=== PATIENT | female | born 1975 | race Hispanic/Latino ===

== ENCOUNTER 2025-06-29 17:57 | Emergency (ER) | payer SELFPAY ==
--- OUTSIDE RECORDS SUMMARY | 2025-06-29 18:01 | XMS REPORT | Continuity of Care Document ---
Author Name Unknown Address [address] [facility] [address] [place] [address] Organization [facility] Address [address] [facility]. [address] [place] [address] Care Team Providers Care Dough Sheeter Name Role Phone Doctor Unassigned, [facility] Unavailable Rickey Harris Attending Clinician MADALYN Attending Clinician Unavailable Gume Joyner MD Attending Clinician [phone] Joce Zamarripa MD Attending Clinician [phone] MADALYN Admitting Clinician Unavailable Problems Condition Name Condition Details Condition Category Status Onset Date Resolution Date Last Treatment Date Treating Clinician Comments Source History of depression History of depression Disease Active 11-11 00:00: 00 [facility] History of tubal ligation History of tubal ligation Disease Active 11-11 00:00: 00 [facility] Obesity Obesity Disease Active 02-10 00:00: 00 Overview: ICD10 Diagnosis Term Top Executive Utility [facility] Depression Depression Disease Active 02-10 00:00: 00 [facility] Pain pelvic Pain pelvic Disease Resolve d 06-17 00:00: 00 2015-11-11 00:00:00 2022-04-07 00:32:19 [facility] Internal hemorrhoid s Internal hemorrhoid s Disease Resolve d 2014-0 6-24 00:00: 00 2015-11-11 00:00:00 2022-04-07 00:30:53 [facility] Condyloma acuminatum Condyloma acuminatum Disease Resolve d 2012-1 2-13 00:00: 00 2015-11-11 00:00:00 2015-11-11 07:31:35 [facility] Dysmenorrh ea Dysmenorrh ea Disease Resolve d 02-10 00:00: 00 2015-11-11 00:00:00 2015-11-11 07:31:17 [facility] Menorrhagi a Menorrhagi a Disease Resolve d 02-10 00:00: 00 2015-11-11 00:00:00 2015-11-11 07:31:22 [facility] Tubal ligation evaluation Tubal ligation evaluation Disease Resolve d 02-10 00:00: 00 2015-11-11 00:00:00 2015-11-11 07:50:24 [facility] Allergies, Adverse Reactions, Alerts Allergy Name Allergy Type Status Severity Reaction(s) Onset Date Inactive Date Treating Clinician Comments Source NO KNOWN ALLERGIE S Drug Class Active [facility] Social History Social Habit Start Date Stop Date Quantity Comments Source [facility] function 2022-04-02 00:00:00 2022-04-02 00:00:00 [facility] Exposure to SARS-CoV-2 (event) 2020-06-07 00:00:00 2020-07-07 16:32:00 Not sure [facility] Tobacco use and exposure 2015-11-11 00:00:00 2015-11-11 00:00:00 Never used [facility] Alcohol intake 2015-11-11 00:00:00 2015-11-11 00:00:00 Current non-drinker of alcohol (finding) [facility] Sex assigned at 1975 00:00:00 1975 00:00:00 [facility] Smoking Status Start Date Stop Date Source Tobacco smoking consumption unknown [facility] Never smoker [facility] Medications Ordered Medication Name Filled Medication Name Start Date Stop Date Current Medication? Ordering Clinician Indication Dosage Frequency Signature (SIG) Comments Components Source NaCl 0.9% (NS) bolus infusion 1,000 mL 2019-09 00:45: 00 07-08 01:23 :00 No 1000mL at 999 mL/hr, 1,000 mL, IV Infusion, ONCE, 1 dose, Fri07/07/20 at 1945, STAT [facility] ondansetron (ZOFRAN (PF)) injection 4 mg 2019-09 00:45: 00 07-07 23:50 :00 No 4mg 4 mg, Slow IV Push, ONCE, 1 dose, Fri07/07/20 at 1945, [facility] meclizine (TRAVEL-EAS E (MECLIZINE) ) tablet 25 mg 2019-09 00:45: 00 07-07 23:50 :00 No 25mg 25 mg, Oral, ONCE, 1 dose, Fri07/07/20 at 1945, [facility] meclizine 25 mg tablet 2019-09 00:00: 00 Yes [id number] 25mg Take 1 tablet by mouth every 6 (six) hours. [facility] ondansetron (ZOFRAN) 4 mg tablet 2019-09 00:00: 00 Yes [id number] 4mg Take 1 tablet by mouth every 8 (eight) hours as needed for Nausea and Vomiting (N/V). [facility] Nitrofurant oin&Nit. Macrocryst (MACROBID) 100 mg capsule 2019-09 00:00: 00 Yes [id number] 100mg Take 1 capsule by mouth 2 (two) times daily. [facility] pantoprazol e (PROTONIX) 40 mg EC tablet 10-28 00:00: 00 Yes 40mg Take 1 tablet by mouth daily. [facility] traMADOL (ULTRAM) 50 mg tablet 10-28 00:00: 00 Yes 50mg Take 1 tablet by mouth every 6 (six) hours as needed for Pain (scale 7-10). [facility] ondansetron (ZOFRAN, HYDROCHLORI DE,) 4 mg tablet 10-28 00:00: 00 Yes 4mg Take 1 tablet by mouth every 8 (eight) hours as needed for Nausea and Vomiting (N/V). [facility] DIPHENHYDRA MINE HCL (BENADRYL ALLERGY ORAL) 11-11 13:28: 49 Yes Take by mouth. [facility] Immunizations Ordered Immunization Name Filled Immunization Name Date Status Comments Source Td 2008-02-11 00:00:00 Completed [facility] TD, NOS 2008-02-11 00:00:00 Completed Vital Signs Vital Name Observation Time Observation Value Comments S vladimir Systolic blood pressure 2020-07-08 01:00:00 122 mm[Hg] [facility] Diastolic blood pressure 2020-07-08 01:00:00 64 mm[Hg] [facility] Heart rate 2020-07-08 01:00:00 60 /min [facility] Respiratory rate 2020-07-08 01:00:00 18 /min [facility] Oxygen saturation in Arterial blood by Pulse oximetry 2020-07-08 01:00:00 100 /min [facility] Body temperature 2020-07-07 21:36:00 37.28 Ruth [facility] Body weight 2020-07-07 21:36:00 90.719 kg [facility] BMI 2020-07-07 21:36:00 30.41 kg/m2 [facility] Procedures Procedure Date / Time Performed Performing Clinician Source CT ANGIOGRAM HEAD 2020-07-07 23:14:47 Gume Joyner [facility] CT ANGIOGRAM NECK 2020-07-07 23:14:47 Gume Joyner [facility] CT HEAD WO CONTRAST 2020-07-07 22:43:41 Toni Joyner [facility] URINALYSIS 2020-07-07 22:00:00 Gume Joyner [facility] ADC / LCC - DRUG SCREEN TRIAGE 2020-07-07 22:00:00 Gume Joyner [facility] THYROID STIMULATING HORMONE 2020-07-07 21:56:00 Gume Joyner [facility] HEPATIC FUNCTION PANEL (24030) (ALB,T.PRO,BILI T,BU/BC,ALT,AST,ALK PHOS) 2020-07-07 21:56:00 Gume Joyner [facility] BASIC METABOLIC PANEL (NA, K, CL, CO2, GLUCOSE, BUN, CREATININE, CA) 2020-07-07 21:56:00 Gume Joyner [facility] CBC WITH DIFF 2020-07-07 21:56:00 Gume Joyner [facility] NOTICE OF PRIVACY PRACTICES 2020-07-07 21:25:44 Doctor Unassigned, [place] [facility] DIGITAL DIAGNOSTIC MAMMOGRAM, UNILATERAL 2012-04-13 19:33:00 Rickey Mcadams [facility] MAMMO [facility] COMPARISON 2011-11-08 20:41:00 Dolores Mcadams se [facility] Encounters Start Date/Time End Date/Time Encounter Type Admission Type Attending [facility] Care Facility Care Department Encounter ID Source 2011-11-08 00:00:00 2024-11-06 05:37:30 Orders Only Rickey Mcadams [facility] CHANGE MANAGEMENT COORDINATOR [facility] & CHILD [facility] [id number] [facility] 2012-04-13 00:00:00 2024-11-06 05:18:38 Orders Only Rickey Mcadams [facility] CHANGE MANAGEMENT COORDINATOR [facility] & CHILD [facility] [id number] [facility] 2020-07-07 16:37:00 2020-07-07 20:25:00 Emergency Gume Joyner [place] [facility] [id number] [facility] 2020-07-07 16:26:00 2020-07-07 16:26:00 Emergency X [facility] ERT [id number] [facility] Results Test Description Test Time Test Comments Results Resul t Comments Source CT ANGIOGRAM HEAD 2020-06-22 01:18:00 No high-grade stenosis or aneurysm is present in the intracranial orcervical vessels. 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 Axial images werereconstructed at 0.625 mm slice thickness. Coronal and sagittal MIPs wereprovided. ? FINDINGS: CTA NECK: Aortic arch and arch vessel origins: The left common carotid artery andinnominate artery. Common origin from the arch. The ostia of the greatvessels is free of stenosis. Innominate and subclavian arteries: Patent and unremarkable. Common carotids: Patent and unremarkable. Bifurcation and cervical carotid arteries: Patent and unremarkable. Vertebral arteries: The vertebral arteries originate from the subclavianartery and patent. The right vertebral artery is dominant. Cervical soft tissues: Unremarkable Lung apices: Clear Cervical spine: Straightening of cervical lordosis. A 0.5 cm scleroticfocus about T1 vertebral body may represent a bone island. The right maxillary sinus is partially opacified and small in size incomparison to the left, likely developmental. CTA HEAD: The left PICA origin is visualized. Right AICA-PICA variant. The basilarartery is normal in caliber. The superior cerebellar arteries areunremarkable. The posterior cerebral arteries are unremarkable. Noappreciable posterior communicating arteries are noted. The distal cervical, petrous, cavernous and supraclinoid internal carotidarteries are unremarkable. The anterior and middle cerebral arteries areunremarkable. An anterior communicating artery is visualized. [facility], Radiant Results Inft User - 07/07/2020 8:19 PM CDTCT ANGIOGRAM HEADCT ANGIOGRAM NECKHISTORY: Dissection of vertebral artery COMPARISON: NoneTECHNIQUE: CT angiography of the neck and head was performed after theintravenous demonstration of Omnipaque contrast. Axial images werereconstructed at 0.625 mm slice thickness. Coronal and sagittal MIPs wereprovided. FINDINGS:CTA NECK:Aortic arch and arch vessel origins: The left common carotid artery andinnominate artery. Common origin from the arch. The ostia of the greatvessels is free of stenosis.Innominate and subclavian arteries: Patent and unremarkable.Common carotids: Patent and unremarkable.Bifurcat ion and cervical carotid arteries: Patent and unremarkable.Vertebra l arteries: The vertebral arteries originate from the subclavianartery and patent. The right vertebral artery is dominant.Cervical soft tissues: UnremarkableLung apices: ClearCervical spine: Straightening of cervical lordosis. A 0.5 cm scleroticfocus about T1 vertebral body may represent a bone island.The right maxillary sinus is partially opacified and small in size incomparison to the left, likely developmental. CTA HEAD: The left PICA origin is visualized. Right AICA-PICA variant. The basilarartery is normal in caliber. The superior cerebellar arteries areunremarkable. The posterior cerebral arteries are unremarkable. Noappreciable posterior communicating arteries are noted.The distal cervical, petrous, cavernous and supraclinoid internal carotidarteries are unremarkable. The anterior and middle cerebral arteries areunremarkable. An anterior communicating artery is visualized.IMPRESSION No high-grade stenosis or aneurysm is present in the intracranial orcervical vessels.Preliminary Report Dictated by Resident: Ferny Rivas MD., have reviewed this study and agree with theabove report. [facility] CT ANGIOGRAM NECK 2019-10-1 7 01:18:00 No high-grade stenosis or aneurysm is present in the intracranial orcervical vessels. 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 Axial images werereconstructed at 0.625 mm slice thickness. Coronal and sagittal MIPs wereprovided. ? FINDINGS: CTA NECK: Aortic arch and arch vessel origins: The left common carotid artery andinnominate artery. Common origin from the arch. The ostia of the greatvessels is free of stenosis. Innominate and subclavian arteries: Patent and unremarkable. Common carotids: Patent and unremarkable. Bifurcation and cervical carotid arteries: Patent and unremarkable. Vertebral arteries: The vertebral arteries originate from the subclavianartery and patent. The right vertebral artery is dominant. Cervical soft tissues: Unremarkable Lung apices: Clear Cervical spine: Straightening of cervical lordosis. A 0.5 cm scleroticfocus about T1 vertebral body may represent a bone island. The right maxillary sinus is partially opacified and small in size incomparison to the left, likely developmental. CTA HEAD: The left PICA origin is visualized. Right AICA-PICA variant. The basilarartery is normal in caliber. The superior cerebellar arteries areunremarkable. The posterior cerebral arteries are unremarkable. Noappreciable posterior communicating arteries are noted. The distal cervical, petrous, cavernous and supraclinoid internal carotidarteries are unremarkable. The anterior and middle cerebral arteries areunremarkable. An anterior communicating artery is visualized. [facility], Radiant Results Inft User - 07/07/2020 8:19 PM CDTCT ANGIOGRAM HEADCT ANGIOGRAM NECKHISTORY: Dissection of vertebral artery COMPARISON: NoneTECHNIQUE: CT angiography of the neck and head was performed after theintravenous demonstration of Omnipaque contrast. Axial images werereconstructed at 0.625 mm slice thickness. Coronal and sagittal MIPs wereprovided. FINDINGS:CTA NECK:Aortic arch and arch vessel origins: The left common carotid artery andinnominate artery. Common origin from the arch. The ostia of the greatvessels is free of stenosis.Innominate and subclavian arteries: Patent and unremarkable.Common carotids: Patent and unremarkable.Bifurcat ion and cervical carotid arteries: Patent and unremarkable.Vertebra l arteries: The vertebral arteries originate from the subclavianartery and patent. The right vertebral artery is dominant.Cervical soft tissues: UnremarkableLung apices: ClearCervical spine: Straightening of cervical lordosis. A 0.5 cm scleroticfocus about T1 vertebral body may represent a bone island.The right maxillary sinus is partially opacified and small in size incomparison to the left, likely developmental. CTA HEAD: The left PICA origin is visualized. Right AICA-PICA variant. The basilarartery is normal in caliber. The superior cerebellar arteries areunremarkable. The posterior cerebral arteries are unremarkable. Noappreciable posterior communicating arteries are noted.The distal cervical, petrous, cavernous and supraclinoid internal carotidarteries are unremarkable. The anterior and middle cerebral arteries areunremarkable. An anterior communicating artery is visualized.IMPRESSION No high-grade stenosis or aneurysm is present in the intracranial orcervical vessels.Preliminary Report Dictated by Resident: Robert Jay, Ferny Maloney MD., have reviewed this study and agree with theabove report. [facility] [id number] 22:46:44Normal CT headCT HEAD WO CONTRAST HISTORY: Female 44 years Dizziness, persistent/recurrent, cardiacorvascular cause suspected COMPARISON: CT head dated 10/28/2017 TECHNIQUE: Routine CT head without contrast FINDINGS: The ventricles and cerebral sulci are normal in caliber and configuration.No hydroce phalus, midline shift or pathological extra-axial fluidcollection is present. The basal cisterns are unremarkable. No acute intracranial hemorrhage or mass effect is present. The du-whitematter differentiation is preserved. No parenchymal attenuation abnormalityis present. The calvarium and skullbase are unremarkable. The mastoid air cells andvisualized paranasal air sinuses are clear. [facility], Radiant Results Inft User - 07/07/2020 5:47 PM CDTCT HEAD WO CONTRASTHISTORY: Female 44 years Dizziness, persistent/recurrent, cardiac orvascular cause suspected COMPARISON: CT head dated 10/28/2017TECHNIQUE: Routine CT head without contrastFINDINGS:The ventricles and cerebral sulci are normal in caliber and configuration.No hydrocephalus, midline shift or pathological extra-axial fluidcollection is present. The basal cisterns are unremarkable.No acute intracranial hemorrhage or mass effect is present. The du-whitematter differentiation is preserved. No parenchymal attenuation abnormalityis pres ent.The calvarium and skull base are unremarkable. The mastoid air cells andvisualized paranasal air sinuses are clear.IMPRESSIONNormal CT headUnHendrick [facility] BrownwoodUrinalysis2020-10-16 22:28:00* Test Item Value Reference Range Interpretation Comme nts APPEARANCE (test code = 2564302943) Hazy Clear A COLOR (test code = 5936054938) Yellow Yellow PH (test code = 4425697242) 4.8-8.0 SP GRAVITY (test code = 9008182397) 1.003-1.030 GLU U QUAL (test code = 3289620177) Normal Normal BLOOD (test code = 8561386858) Negative Negative KETONES (test code = 6772820781) Negative Negative PROTEIN (test code = 2887-8) Negative Negative UROBILIN (test code = 6779228248) Normal Normal BILIRUBIN (test code = 7744270971) Negative Negative NITRITE (test code = 4669672449) Negative Negative LEUK JOLIE (test code = 1173804467) 75/uL Negative A RBC/HPF (test code = 8401662706) See_Comment [Automated messa ge] The system which generated this result transmitted reference range: 0 - 3 HPF. The reference range was not used to interpret this result as normal/abnormal. WBC/HPF (test code = 4898161443) See_Comment H [Automated messa ge] The system which generated this result transmitted reference range: 0 - 5 HPF. The reference range was not used to interpret this result as normal/abnormal. BACTERIA (test code = 7481742916) Few Negative A MUCOUS (test code = 1147420922) Moderate Negative LPF A SQ EPITH (test code = 0470846229) HPF Lab Interpretation (test code = 52036-2) Abnormal [facility] Metabolic Panel (NA, K, CL, CO2, GLUCOSE, BUN, CREATININE, CA)2020-07-07 22:21:00* Test Item Value Reference Range Interpretation Comme nts NA (test code = 8975546255) 136 mmol/L 135-145 K (test code = 7456557706) 3.8 mmol/L 3.5-5 CL (test code = 1628497918) 102 mmol/L 98-108 CO2 TOTAL (test code = 8904325569) 24 mmol/L 23-31 AGAP (test code = 0023885462) 2-16 BUN (test code = 1499672755) 9 mg/dL 7-23 GLUCOSE (test code = 1409413443) 106 mg/dL 70-110 CREATININE (test code = 2901569920) 0.67 mg/dL 0.5-1.04 CALCIUM (test code = 5608587189) 9.1 mg/dL 8.6-10.6 eGFR Calculation (Non-) (test code = 2172421643) mL/min/1.73m2 eGFR Calculation () (test code = 1226885990) mL/min/1.73m2 BRINA (test code = BRINA) Association of Glomerular Filtration Rate (GFR) and Staging of Kidney Disease* + -+ + ---+| GFR (mL/min/1.73 m2) ?| With Kidney Damage ?| ?Without Kidney Damage+ -------+ ------+ ---------+| ?>90 ?| ?Stage one ?| ? Normal ?+ --+ -+ ----+| ?60-89 ?| ?Stage two ?| ? Decreased GFR ? + -+ + ---+| ?30-59 ?| ?Stage three ?| ? Stage three ? + -+ + ---+| ?15-29 ?| ?Stage four ? | ? Stage four ?+ --+ -+ ----+| ?<15 (or dialysis) ? ?| ?Stage five ? | ? Stage five ?+ --+ -+ ----+ *Each stage assumes the associated GFR level has been in effect for at least three months. ?Stages 1 to 5, with or without kidney disease, indicate chronic kidney disease. Notes: Determination of stages one and two (with eGFR >59mL/min/1.73 m2) requires estimation of kidney damage for at least three months as defined by structural or functional abnormalities of the kidney, manifested by either:Pathological abnormalities or Markers of kidney damage (including abnormalities in the composition of the blood or urine or abnormalities in imaging tests). [facility] (ALB, T.PRO, BILI T, BU/BC, ALT, AST, ALK PHOS)2020-07-07 22:21:00* Test Item Value Reference Range Interpretation Comme nts TOTAL BILI (test code = 7732258130) 0.4 mg/dL 0.1-1.1 BILI UNCON (test code = 0665667313) 0.5 mg/dL 0.1-1.1 BILI CONJ (test code = 2137401297) 0.0 mg/dL 0-0.3 T PROTEIN (test code = 2605856133) 7.4 g/dL 6.3-8.2 ALBUMIN (test code = 4632977968) 4.0 g/dL 3.5-5 ALK PHOS (test code = 0158403884) 69 U/L 34-122 ALTv (test code = 1742-6) 19 U/L 5-35 AST(SGOT) (test code = 5241270962) 21 U/L 13-40 Lab Interpretation (test cod e = 67848-3) Normal [facility] / [facility] - DRUG SCREEN [id number] 22:21:00* Test Item Value Reference Range Interpretation Comme nts BENZO U (test code = 5745261469) Negative Negative SWAPNA U (test code = 9113849918) Negative Negative AMPHET (test code = 4771627794) Negative Negative THC (test code = 2307163940) Negative Negative METHADONE (test code = 1006762887) Negative Negative Meth U (test code = 7899204617) Negative Negative OPIATES (test code = 6090407423) Negative Negative Cocaine Metabolite (test code = 1172152563) Negative Negative PROPOXY (test code = 1727952571) Negative Negative Tric U (test code = 0316399981) Negative Negative PCP (test code = 9504222597) Negative Negative OXYCOD (test code = 3474213828) Negative Negative BRINA (test code = BRINA) Urine Drug Cutoff Ranges Benzodiazepines: ? ? 150 ng/mLBarbiturates: ?200 ng/mLAmphetamine: ? 500 ng/mLCannabinoids: ?50 ?ng/mLMethadone: ? 200 ng/mLMethamphetamine: ? ? 500 ng/mL Opiates: ? 100 ng/mL or 2000 ng/mLCocaine: ? 150 ng/mLPropoxyphene: ?300 ng/mLTricyclics: ?300 ng/mLOxycodone: ? 100 ng/mLPCP: ? 25 ?ng/mL The results are to be used only for medical (i.e., treatment) purposes. Unconfirmed screening results must not be used for non-medical purposes (e.g., employment testing, legal testing). Lab Interpretation (test code = 21835-1) Normal [facility] with [id number] 22:12:00* Test Item Value Reference Range Interpretation Comme nts WBC (test code = 6690-2) See_Comment [Automated messa ge] The system which generated this result transmitted reference range: 4.30 - 11.10 10*3/?L. The reference range was not used to interpret this result as normal/abnormal. RBC (test code = 789-8) See_Comment [Automated messa ge] The system which generated this result transmitted reference range: 3.93 - 5.25 10*6/?L. The reference range was not used to interpret this result as normal/abnormal. HGB (test code = 718-7) 11.3 g/dL 11.6-15 L HCT (test code = 4544-3) 36.4 % 35.7-45.2 MCV (test code = 787-2) 74.6 fL 80.6-95.5 L MCH (test code = 785-6) 23.2 pg 25.9-32.8 L MCHC (test code = 786-4) 31.0 g/dL 31.6-35.1 L RDW-SD (test code = 96527-6) 40.6 fL 39-49.9 RDW-CV (test code = 788-0) 15.2 % 12-15.5 PLT (test code = 777-3) See_Comment [Automated messa ge] The system which generated this result transmitted reference range: 166 - 358 10*3/?L. The reference range was not used to interpret this result as normal/abnormal. MPV (test code = 61672-5) 9.9 fL 9.5-12.9 NRBC/100 WBC (test code = 2168504642) See_Comment [Automated StyleSaint ssage] The system which generated this result transmitted reference range: 0.0 - 10.0 /100 WBCs. The reference range was not used to interpret this result as normal/abnormal. NRBC x10^3 (test code = 2211929477) <0.01 See_Comment [Automated messa ge] The system which generated this result transmitted reference range: 10*3/?L. The reference range was not used to interpret this result as normal/abnormal. GRAN MAT (NEUT) % (test code = 770-8) 71.0 % IMM GRAN % (test code = 4188868702) 0.60 % LYMPH % (test code = 736-9) 20.2 % MONO % (test code = 5905-5) 6.1 % EOS % (test code = 713-8) 1.8 % BASO % (test code = 706-2) 0.3 % GRAN MAT x10^3(ANC) (test code = 0736869816) 7.59 10*3/uL 1.88-7.09 H IMM GRAN x10^3 (test code = 1694925278) 0.06 10*3/uL 0-0.06 LYMPH x10^3 (test code = 731-0) 2.16 10*3/uL 1.32-3.29 MONO x10^3 (test code = 742-7) 0.65 10*3/uL 0.33-0.92 EOS x10^3 (test code = 711-2) 0.19 10*3/uL 0.03-0.39 BASO x10^3 (test code = 704-7) 0.03 10*3/uL 0.01-0.07 Lab Interpretation (test code = 92710-6) [facility] 2012-04-13 20:06:00DIGITAL MAMMOGRAM, UNILATERAL*.*.*.*.*.*.*.*.*.*.*.*.*.*FINAL*.*.*.*.*.*.*.*.*.*.*.*.*.*.*History: ?Patient received a prior screening mammogram on 11/08/2011 (performed at an outside institution) which showed a focal asymmetry in the lateral aspect of the right breast. She now presents for additional short interval follow up imaging of the right breast. Computer-aided detection(CAD)utilized. Comparison is made to images from 11/08/2011 (bilateral) and outside images from 06/14/2010 (bilateral -[facility]). Right Breast Findings:There are scattered fibroglandular densities (25% - 50% fibroglandular). No significant masses, calcifications or other abnormalities are seen. ?The previously described focal asymmetry has resolved on the spot compression images so this finding likely represented superimposed breast tissue. IMPRESSION:RIGHT BREASTNegative, no evidence of malignancy. Normal interval follow-up is recommended in 7 months (when she is due for bilateral annual screening mammography in October 2012).These findings and recommendations were discussed in detail with the patient at the conclusion of today's examination. OVERALL ASSESSMENT - CATEGORY 1 - NEGATIVEEND OF IMPRESSIONRADH[facility] [id number] 15:08:00[facility] COMPARISON*.*.*.*.*.*.*.*.*.*.*.*.*.*FINAL*.*.*.*.*.*.*.*.*.*.*.*.*.*.*Exams of 11/08/2011 and 06/14/2010 from [facility] placed in PACS.[facility]"
--- NOTE | 2025-06-29 18:13 | EDPHYS ---
Physician Documentation [facility] Name: Jenna Matos Age: 49 yrs Sex: Female : 1975 Arrival Date: 06/29/2025 Time: 17:57 Bed IW3 Private MD: ED Physician Neal Hernandez HPI: 06/29 20:23 This 49 yrs old Female presents to ER via Ambulatory with complaints of Head ms3 Injury Without LOC-Adult, Laceration To Head - HIT HEAD ON TRACTOR. 20:23 49-year-old female with no past medical history presents to the emergency department ms3 for head injury. 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 Patient states her head began bleeding causing them to come to the emergency department. Patient states this occurred just prior to arrival. Patient states her tetanus status is unknown. ROS: 20:23 Constitutional: Negative for fever, and chills. Cardiovascular: Negative for chest ms3 pain, and palpitations. Respiratory: Negative for shortness of breath, cough, wheezing, and pleuritic chest pain, Abdomen/GI: Negative for abdominal pain, nausea, vomiting, diarrhea, and constipation, MS/Extremity: Negative for injury and deformity, 20:23 Skin: Positive for Scalp laceration, Exam: 20:23 Constitutional: This is a well developed, well nourished patient who is awake, alert, ms3 and in no acute distress. Cardiovascular: Regular rate and rhythm with a normal S1 and S2. No gallops, murmurs, or rubs. Normal PMI, no JVD. No pulse deficits. Respiratory: Lungs have equal breath sounds bilaterally, clear to auscultation and percussion. No rales, rhonchi or wheezes noted. No increased work of breathing, no retractions or nasal flaring. Abdomen/GI: Soft, non-tender, with normal bowel sounds. No distension or tympany. No guarding or rebound. No evidence of tenderness throughout. 20:23 MS/ Extremity: Pulses equal, no cyanosis. Neurovascular intact. Full, normal range of motion. 20:23 Skin: Superficial right parietal 3 cm scalp laceration. Vital Signs: 18:23 BP 138 / 84; Pulse 74; Resp 16; Temp 98.1; Pulse Ox 100% on R/A; iw MDM: 18:02 Medical Screening Exam initiated kb 18:04 Medical Screening Exam initiated ms3 20:23 Differential diagnosis: Contusion of head, Hematoma on head, Superficial scalp ms3 laceration. Data reviewed: vital signs, nurses notes, and as a result, I will discharge patient. Counseling: I had a detailed discussion with the patient and/or guardian regarding the historical points, exam findings, and any diagnostic results supporting the discharge/admit diagnosis, the need for outpatient follow up, to return to the emergency department if symptoms worsen or persist or if there are any questions or concerns that arise at home. Special discussion: I discussed with the patient/guardian in detail that at this point there is no indication for admission to the hospital. It is understood, however, that if the symptoms persist or worsen the patient needs to return immediately for re-evaluation. ED course: Discussed physical exam findings with patient and her . They understand and agree with plan for discharge. All questions were answered. Patient to follow-up with her primary care physician as needed. Return precautions discussed include worsening symptoms, vomiting, altered mental status, or any other concerns.. Administered Medications: 18:23 Drug: Boostrix Tdap IM 0.5 ml IM once; as a single dose Route: IM; Site: right deltoid; iw 18:30 Follow up: Response: No adverse reaction iw Disposition Summary: 06/29/25 18:13 Discharge Ordered Notes: Location: Home ms3 Condition: Stable ms3 Diagnosis - Superficial injury of scalp ms3 Followup: ms3 - With: Ronny Blanc DO - When: 2 - 3 days - Reason: Recheck today's complaints Discharge Instructions: - Discharge Summary Sheet ms3 - Facial or Scalp Contusion, [id number] ms3 Forms: - Medication Reconciliation Form ms3 - Antibiotic Education ms3 - Prescription Opioid Use ms3 - Patient Portal Instructions ms3 - Leadership Thank You Letter ms3 Signatures: Ricarda Richards FNP-C FNP-Vaishali Lund RN RN iw Neal Hernandez, DO ms3
[2025-06-29] MEDS ORDERED: TDAP (DIPHTH,PERTUSS(ACELL),TET VAC) 0.5 ML VIAL IMVAC ONE (18:20)
--- NOTE | 2025-06-29 18:28 | ER ---
Nurse's Notes [facility] Name: Jenna Matos Age: 49 yrs Sex: Female : 1975 Arrival Date: 06/29/2025 Time: 17:57 Bed IW3 Private MD: Diagnosis: Superficial injury of scalp Presentation: 06/29 18:23 Chief complaint: Chief complaint: Patient states: hit her head on tractor , superficial iw laceration to top of head. Coronavirus screen: At this time, the client does not indicate any symptoms associated with coronavirus-19. 18:23 Acuity: DREW 4 iw 18:23 Method Of Arrival: Ambulatory iw 19:10 Ebola Screen: No symptoms or risks identified at this time. Initial Sepsis Screen: Does iw the patient meet any 2 criteria? No. Patient's initial sepsis screen is negative. Does the patient have a suspected source of infection? No. Patient's initial sepsis screen is negative. Risk Assessment: Do you want to hurt yourself or someone else? Patient reports no desire to harm self or others. Triage Assessment: 18:23 General: Appears in no apparent distress. Behavior is calm, cooperative. Pain: iw Complains of pain in head. Screenin:25 [facility] ED Fall Risk Assessment (Adult) History of falling in the last 3 months, iw including since admission No falls in past 3 months (0 pts) Confusion or Disorientation No (0 pts) Intoxicated or Sedated No (0 pts) Impaired Gait No (0 pts) Mobility Assist Device Used No (0 pt) Altered Elimination No (0 pt) Score/Fall Risk Level 0 - 2 = Low Risk Oriented to surroundings, Maintained a safe environment. Abuse screen: Denies threats or abuse. Denies injuries from another. Nutritional screening: No deficits noted. Tuberculosis screening: No symptoms or risk factors identified. Assessment: 18:25 General: Appears in no apparent distress. Behavior is calm, cooperative. Pain: iw Complains of pain in head. Neuro: Level of Consciousness is awake, alert, obeys commands, Oriented to person, place, time, situation, Rehabilitation Worker are equal bilaterally Moves all extremities. Full function. Cardiovascular: Patient's skin is warm and dry. Respiratory: Airway Respiratory effort is even, unlabored, Respiratory pattern is regular, symmetrical. Vital Signs: 18:23 BP 138 / 84; Pulse 74; Resp 16; Temp 98.1; Pulse Ox 100% on R/A; iw ED Course: 18:01 Patient arrived in ED. cj3 18:01 Ricarda Richards FNP-C is [facility]. kb 18:01 Neal Hernandez DO is Attending Physician. kb 18:13 Ronny Blanc DO is Referral Physician. ms3 18:23 Vaishali Nieto, RN is Primary Nurse. iw 18:23 Triage completed. iw 18:23 Arm band placed on. iw 18:24 No provider procedures requiring assistance completed. Patient did not have IV access iw during this emergency room visit. Administered Medications: 18:23 Drug: Boostrix Tdap IM 0.5 ml IM once; as a single dose Route: IM; Site: right deltoid; iw 18:30 Follow up: Response: No adverse reaction iw Medication: 18:25 VIS not applicable for this client. Vaccine Information Statement (VIS) provided today. iw Questions and/or concerns addressed. VIS edition date: April 2021. Outcome: 18:13 Discharge ordered by MD. ms3 18:27 Discharged to home ambulatory, with family, iw 18:27 Condition: good 18:27 Discharge instructions given to patient, Instructed on discharge instructions, follow up and referral plans. Demonstrated understanding of instructions, follow-up care, 18:28 Patient left the ED. dd2 Signatures: Ricarda Richards FNP-C FNP-Ckb Vaishali Nieto RN RN iw Neal Hernandez DO DO ms3 TEODORA LAW RN RN dd2 Holly Weston cj3 Corrections: (The following items were deleted from the chart) 19:11 18:23 Chief complaint: iw iw
[2025-06-29 18:31] VITALS: BP 138/84; TEMP 98.1; O2SAT 100
== END 2025-06-29 18:28 | disposition home or self-care (01) ==
LOC: ER 17:57
DX: S01.01XA Laceration without foreign body of scalp, initial encounter (principal)
CPT/HCPCS: 90715; 96372; 99284